=== PATIENT | female | born 1970 | race Caucasian/White ===

== ENCOUNTER 2018-04-30 09:52 | Emergency (ER) | payer BC ==
[~2018-04-30] VITALS: Wt 59.0 kg
[2018-04-30] MEDS ORDERED: ATIVAN1 MG PO (09:58)
[2018-04-30] MEDS ORDERED: LEXAPRO10 MG PO (09:58)
[2018-04-30] MEDS ORDERED: NORCO 5-325 TA1 EACH PO (11:07)
== END 2018-04-30 11:17 | disposition home or self-care (01) ==
LOC: ED 09:52
DX: S02.611A Fracture of condylar process of right mandible, initial encounter for closed fracture (principal); S01.81XA Laceration without foreign body of other part of head, initial encounter; Z88.0 Allergy status to penicillin; Z79.899 Other long term (current) drug therapy; Z98.890 Other specified postprocedural states; W01.198A Fall on same level from slipping, tripping and stumbling with subsequent striking against other object, initial encounter; Y93.02 Activity, running; Y92.89 Other specified places as the place of occurrence of the external cause; Y99.9 Unspecified external cause status